=== PATIENT | female | born 1980 | race Caucasian/White ===

== ENCOUNTER → 2020-04-23 12:38 | Outpatient (CLI) | payer OTHER, SELFPAY ==
--- NOTE | ~2020-04-23 | MM_ITS ---
EXAMINATION: MM screening [facility] BI w peggy HISTORY: Screening mammogram TECHNIQUE: Craniocaudal and mediolateral oblique 3-D tomosynthesis images were obtained and synthetic 2-D images were generated. Bilateral rotated lateral craniocaudal views. CAD analysis was submitted and interpreted. COMPARISON: 01/12/2019 left diagnostic digital mammogram and complete left breast ultrasound examinat ion, left axillary ultrasound examination BREAST PARENCHYMAL COMPOSITION: The breasts are extremely dense, which lowers the sensitivity of mamm ography. FINDINGS: Scattered bilateral benign calcifications are noted. There is no evidence of suspicious mas s, calcification, or architectural distortion to suggest malignancy in either breast. There has been no suspicious interval change. IMPRESSION: 1. No mammographic evidence of malignancy. 2. Recommend routine screening mammography in one year. BI-RADS Category 2: Benign finding(s). Reviewed, dictated and finalized at location A. 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
== END ==
PROVIDERS: PCP Nurse Practitioner Family; Visit Provider Nurse Practitioner Family
DX: Z12.31 Encounter for screening mammogram for malignant neoplasm of breast (principal)
CPT/HCPCS: 77063; 77067

== ENCOUNTER 2020-06-27 14:04 | Emergency (ER) | payer OTHER, SELFPAY ==
[2020-06-27 14:12] VITALS: BP 103/72; PULSE 87; RESP 16; TEMP 36.7; O2SAT 98
--- NOTE | 2020-06-27 14:31 | ED.EAR ---
HPI - Ear Problem General Chief complaint: Ear Stated complaint: ear pain Time Seen by Provider: 06/27/20 14:31 Source: patient Mode of arrival: ambulatory Limitations: no limitations History of Present Illness HPI Narrative: Alyson Stringer is a 40 yo female with no PMH [facility] of left ear pain she has had ear pain for about the last week but has a history of having earaches as a child and getting congestion on the left side of her ear Related Data Allergies Allergy/AdvReac Type Severity Reaction Status Date / Time codeine Allergy Mild Unknown Verified 06/27/20 14:12 amoxicillin AdvReac Intermediate Unknown Verified 06/27/20 14:12 Review of Systems Review of Systems: Narrative: CONSTITUTIONAL: Denies fever, chills, sweats. EYES: Denies visual changes, redness, discharge. ENT: Denies rhinorrhea, congestion, sore throat, left otalgia. CARDIOVASCULAR: Denies chest pain, palpitations, edema. RESPIRATORY: Denies dyspnea, wheezing, cough GASTROINTESTINAL: Denies abdominal pain, nausea, vomiting, diarrhea. GENITOURINARY: Denies dysuria, hematuria, abnormal discharge SKIN: Denies rash or itching. NEUROLOGIC: Denies numbness, or focal weakness. PSYCHIATRIC: Denies anxiety or depression. PMFSH Past Medical History Medical History (Updated 06/27/20 @ 14:45 by Latoya Beal CNP) No acute medical problems Family History Family History Mother Diabetes mellitus Hypertension Father Hypertension Family history of cardiovascular disease Cerebrovascular accident Social History Social History (Updated 06/27/20 @ 14:40 by Latoya Beal CNP) Smoking status: Never smoker Alcohol intake: current Comments At time of signature, I agree with nursing past medical, surgical, social and family history. There is no relevant family history pertinent to the presenting complaint. Exam Narrative: Exam Narrative: GENERAL: This is a well-nourished, well-developed patient, in mild distress. HEAD: normocephalic, atraumatic. EYES: Sclera clear/white. Vision is grossly intact. EARS: External ears normal, auditory canals mild erythema and without drainage, TMs normal without perforation. Hearing grossly intact. Left ear tenderness anterior to auricle NOSE: External nose normal with nasal discharge, nares without redness, no rhinorrhea. THROAT: Mucous membranes moist, posterior pharynx no erythema NECK: Neck supple, non-tender CARDIOVASCULAR: Regular rate and rhythm without murmurs, gallops, or rubs. RESPIRATORY: Clear to auscultation. Breath sounds equal bilaterally. No wheezes, rales, or rhonchi. GASTROINTESTINAL: Abdomen soft, non-tender, SKIN: warm, intact with no suspicious lesions or rash, good texture and turgor. NEURO: awake, alert, and oriented to person, place and time. There were no obvious focal neurologic abnormalities. Steady gait EXTREMITIES: Normal range of motion. BACK: Nontender without deformity Course Course Emergency Course: Pain in left ear that started a week ago has a history of difficulty with congestion in the left ear Start patient on polymyxin eardrops with hydrocortisone, Flonase, Zyrtec May use ibuprofen for jaw pain follow-up with PCP Vital Signs Vital signs: Vital Signs Temperature 98.1 F 06/27/20 14:12 Pulse Rate 87 06/27/20 14:12 Respiratory Rate 16 06/27/20 14:12 Blood Pressure 103/72 06/27/20 14:12 Pulse Oximetry 98 06/27/20 14:12 Temperature 98.1 F 06/27/20 14:12 Pulse Rate 87 06/27/20 14:12 Respiratory Rate 16 06/27/20 14:12 Blood Pressure 103/72 06/27/20 14:12 Pulse Oximetry 98 06/27/20 14:12 Medical Decision Making MDM Narrative Medical decision making narrative: Otitis media versus otitis externa versus sinus congestion Vital Signs Vital Signs: Vital Signs Temperature 98.1 F 06/27/20 14:12 Pulse Rate 87 06/27/20 14:12 Respiratory Rate 16
== END 2020-06-27 14:50 | disposition home or self-care (01) ==
PROVIDERS: Emergency Provider Nurse Practitioner; PCP Nurse Practitioner Family
DX: H92.02 Otalgia, left ear (principal); F41.9 Anxiety disorder, unspecified
CPT/HCPCS: 99213; G0463

== ENCOUNTER 2021-02-25 09:56 | Outpatient (CLI) | payer OTHER, SELFPAY ==
--- NOTE | 2021-02-25 14:22 | WPDPFTINT ---
PFT Procedure Performed PFT Procedure Performed Spirometry with Pre/Post Bronchodilator Plethysmography (Lung Vol) Diffusing Cap (DLCO) Flow Vol Loop PFT Interpretation This is a pulmonary function test with pre and post-bronchodilator spirometry, plethysmography and diffusing capacity. The test was performed and results interpreted in accordance with the 2019 and 2005 ATS/ERS Task Force guidelines respectively using the Global Lung Function Initiative-2012 reference equations. Patient demonstrated good effort and cooperation. Reproducibility criteria were met. The quality of the pre bronchodilator spirometry maneuver was Grade A and post bronchodilator spirometry maneuver was Grade A. Findings: Spirometry: The expiratory flow tracing demonstrates the mid expiratory plateau in airflow creating a mild convex inflection referred to as the knee pattern the contour the inspiratory flow tracing is normal. This was reproducible on 2 of 3 pre bronchodilator and all 3 post bronchodilator efforts. the pre bronchodilator FVC is 4.22 L, 106 % predicted. The pre bronchodilator FEV1 is 3.24 L, 100% predicted. The FEV1: FVC ratio 77%. The post bronchodilator FVC is 4.25 L, representing 1% increase. The post bronchodilator FEV1 is 3.25 L, representing no change. The post bronchodilator FEV1: FVC ratio 76%. Plethysmography: The total lung cuff capacity is 5.67 L, 105% predicted. The functional residual capacity is 2.66 L, 89% predicted. The residual volume is 1.44 L, 85% predicted. Diffusing capacity: The absolute diffusion capacity is 24.4, 99% predicted. The diffusing capacity corrected for alveolar volume is 4.51, 97% predicted. Impression: The expiratory flow tracing demonstrates a reproducible mid explored expiratory plateau in airflow creating a convex inflection referred to as the knee pattern in 2 of 3 pre bronchodilator and 3 of 3 post bronchodilator efforts. This pattern can be a normal variant or pathologic and has been attributed to a choke point section of the bronchial tree. The normal variant is more common in younger female patients, decreases with age and is more pronounced in the post bronchodilator efforts. The pattern has also been described with kyphosis, kyphoscoliosis, central obstructing mass is, and post lung transplantation. Clinical correlation is recommended. The spirometry is normal without evidence of an obstructive abnormality. There is no significant improvement after inhaling a single dose of albuterol. The lung volumes are normal. The diffusing capacity is normal. There are no prior studies for comparison
== END 2021-02-25 09:57 | disposition home or self-care (01) ==
LOC: ANHPFT 09:58
PROVIDERS: PCP Family Medicine; Visit Provider Nurse Practitioner Family
DX: R06.02 Shortness of breath (principal); R06.00 Dyspnea, unspecified
CPT/HCPCS: 94060; 94726; 94729

== ENCOUNTER 2021-03-26 11:44 | Outpatient (CLI) | payer OTHER, SELFPAY ==
[2021-03-26 12:13] LABS: Basophils Absolute Auto 0.1 K/mm3 (0.0-0.1); Basophils Percent Auto 1.2 % (0.2-1.2); Eosinophils Absolute Auto 0.2 K/mm3 (0-0.3); Eosinophils Percent Auto 3.6 % (0-4.4); Hematocrit 40.8 % (37.0-47.0); Hemoglobin 13.6 g/dL (12.0-15.0); Immature Granulocyte Absolute 0.01 K/mm3 (0.00-0.031); Immature Granulocyte Percent A 0.2 % (0-0.5); Lymphocytes Absolute Auto 1.56 K/mm3 (0.9-3.2); Lymphocytes Percent Auto 27.8 % (18.3-44.2); Mean Corpuscular HGB Conc 33.3 g/dl (32-36); Mean Corpuscular Hemoglobin 31.7 pg (26-34); Mean Corpuscular Volume 95.1 fl (80-100); Mean Platelet Volume 10.2 fl (7.4-10.4); Monocytes Absolute Auto 0.5 K/mm3 (0.1-0.6); Monocytes Percent Auto 9.1 % (2.6-8.5); Neutrophils Absolute Auto 3.3 K/mm3 (1.3-6.7); Neutrophils Percent Auto 58.1 % (45.5-73.1); Platelet Count Result 249 k/mm3 (150-375); Red Blood Count 4.29 M/mm3 (4.2-5.4); Red Cell Distribution Width 11.9 % (11.5-14.5); White Blood Count 5.6 K/mm3 (4.5-10.0)
== END 2021-03-26 11:45 | disposition home or self-care (01) ==
LOC: ANHLAB 11:46
PROVIDERS: PCP Nurse Practitioner Family; Visit Provider Internal Medicine Pulmonary Disease
DX: R06.02 Shortness of breath (principal)
CPT/HCPCS: 36415; 85025

== ENCOUNTER 2021-04-29 12:08 | Outpatient (CLI) | payer OTHER, SELFPAY ==
--- NOTE | ~2021-04-29 | XR_ITS ---
EXAMINATION: XR chest 2V EXAM DATE: 04/29/2021 12:31 INDICATION: R06.02 - Shortness of breath TECHNIQUE: Frontal and lateral projections of the chest obtained and reviewed. There is no prior ciarra dy for comparison. FINDINGS: The lungs are clear. There are no pleural effusions. The cardiomediastinal silhouette is within normal limits. There is no pneumothorax suspected. The bones and soft tissues are unremarkab le. IMPRESSION: Normal chest x-ray exam. Reviewed, dictated and finalized at location A. ANY DRIVER IMPRESSION: Normal chest x-ray exam.
--- NOTE | 2021-04-29 12:36 | ECHO_ITS ---
Patient Info Name: Alyson Stringer Age: 41 years : 1980 Gender: Female Ht: 66 in Wt: 143 lbs BSA: 1.74 m2 HR: 86 bpm BP: 108 / 75 mmHg Heart Rhythm: Sinus Rhythm Technical Quality: Fair Exam Date: 04/29/2021 12:44 PM Exam Location: [facility] Pulmonary Patient Status: Outpatient Admit Date: 04/29/2021 Staff Ordering Physician: Isai Hammond MD Cellophane Bag Machine Operator: Mariaa Diego RDCS Attending Provider: Isai Hammond MD Referring Physician: Manish SANCHEZ; Exam Type: CA echo doppler color flow Study Info Indications - shortness of breath Complete two-dimensional, color flow and Doppler transthoracic echocardiogram is performed. Summary 1. Complete two-dimensional, color flow and Doppler transthoracic echocardiogram is performed. 2. Left ventricular chamber dimension is normal. 3. Left ventricular systolic function is normal, estimated at 65-70%. 4. There is mildly increased left ventricular wall thickness. 5. The left ventricular diastolic function is normal. 6. There is trace mitral valve regurgitation. 7. There is no aortic valve stenosis. 8. There is trace tricuspid valve regurgitation. 9. No pulmonary hypertension, estimated pulmonary arterial systolic pressure is 19 mmHg. Left Ventricle Left ventricular chamber dimension is normal. Left ventricular systolic function is normal, estimated at 65-70%. There is mildly increased left ventricular wall thickness. The left ventricular diastolic function is normal. Right Ventricle Right ventricular chamber dimension is normal. Right ventricular systolic function is normal. Left Atria Left atrial chamber dimension is normal. Right Atria Right atrial chamber dimension is normal. Aortic Valve The aortic valve is trileaflet. There is no aortic valve stenosis. There is no aortic valve regurgitation. Pulmonic Valve The pulmonic valve is not well visualized. There is trace pulmonic regurgitation. Mitral Valve The mitral valve has normal leaflets. There is trace mitral valve regurgitation. Tricuspid Valve The tricuspid valve leaflets are normal. There is trace tricuspid valve regurgitation. No pulmonary hypertension, estimated pulmonary arterial systolic pressure is 19 mmHg. Pericardium/Pleural The pericardium appears normal. There is trivial pericardial effusion. Inferior Vena Cava Normal inferior vena cava with >50% collapse upon inspiration consistent with normal right atrial pressure, 5 mmHg. Aorta The aortic root size at the sinus of Valsalva is normal. Left Ventricular Outflow Tract Name Value Normal LVOT 2D LVOT Diameter 2.0 cm LVOT Doppler LVOT Peak Gradient 3 mmHg LVOT Mean Gradient 1 mmHg LVOT VTI 16 cm LVOT VTI/AV VTI Ratio 0.7 LVOT Stroke Volume 48 ml LVOT CO 3.9 l/min LVOT CI 2.2 l/min/m2 Pulmonic Valve
== END 2021-04-29 12:09 | disposition home or self-care (01) ==
LOC: ANHIMG 12:18
PROVIDERS: PCP Nurse Practitioner Family; Visit Provider Internal Medicine Pulmonary Disease
DX: R06.02 Shortness of breath (principal)
CPT/HCPCS: 71046; 93306

== ENCOUNTER → 2021-08-19 12:10 | Outpatient (CLI) | payer OTHER, SELFPAY ==
--- NOTE | ~2021-08-19 | MM_ITS ---
EXAMINATION: MM screening [facility] BI w peggy HISTORY: Screening mammogram TECHNIQUE: Craniocaudal and mediolateral oblique 3-D tomosynthesis images were obtained and synthetic 2-D images were generated. CAD analysis was submitted and interpreted. COMPARISON: 04/23/2020, 01/12/2019 BREAST PARENCHYMAL COMPOSITION: The breasts are extremely dense, which lowers the sensitivity of mamm ography. FINDINGS: There is no suspicious mass, calcification, or architectural distortion to suggest malignan cy in either breast. There has been no suspicious interval change. IMPRESSION: 1. No mammographic evidence of malignancy. 2. Recommend routine screening mammography in one year. BI-RADS Category 1: Negative Reviewed, dictated and finalized at location A.
== END ==
PROVIDERS: PCP Family Medicine; Visit Provider Nurse Practitioner Family
DX: Z12.31 Encounter for screening mammogram for malignant neoplasm of breast (principal)
CPT/HCPCS: 77063; 77067

== ENCOUNTER → 2021-11-19 10:19 | Outpatient (CLI) | payer OTHER, SELFPAY ==
--- NOTE | ~2021-11-19 | US_ITS ---
EXAMINATION: US abdomen complete DATE: 11/19/2021 10:46 INDICATION: Abdominal pain TECHNIQUE: Multiple grayscale and Doppler ultrasound images of the abdomen were obtained. COMPARISON: None available FINDINGS: Bowel gas obscures visualization of the pancreas. The visualized portions of the pancreas a re unremarkable. The liver is normal with normal echogenicity and echotexture. No surface nodularity. Normal hepatopetal flow in the main portal vein. The gallbladder is normal with no abnormal wall thi ckening, pericholecystic fluid or stones. The normal common bile duct measures 5 mm. There was no son ographic Bates sign. The visualized portions of the aorta and inferior vena cava are normal. The right kidney measures 9.7 x 4.2 x 4.9 cm. The left kidney measures 9.3 x 4.9 x 5.2 cm. The kidney s demonstrate normal parenchymal echogenicity. There is no hydronephrosis. The spleen is normal in ap pearance and measures 8.0 cm. IMPRESSION: 1. No sonographic correlate for the patient's symptoms. Reviewed, dictated and finalized at location A.
== END ==
PROVIDERS: PCP Nurse Practitioner Family; Visit Provider Nurse Practitioner Family
DX: R10.9 Unspecified abdominal pain (principal)
CPT/HCPCS: 76700

== ENCOUNTER → 2021-11-25 09:17 | Outpatient (CLI) | payer OTHER, SELFPAY ==
--- NOTE | ~2021-11-25 | MMUS_ITS ---
EXAMINATION: MM diagnostic [facility] LT w peggy, US breast LT limited HISTORY: Palpable left breast abnormality. TECHNIQUE: Additional 3-D tomosynthesis images of the left breast were performed and synthetic 2-D im ages were generated. CAD analysis was submitted and interpreted. High resolution Limited left breast ultrasound was performed. COMPARISON: Comparison to multiple prior studies sequentially, with oldest reviewed study dated 01/03. BREAST PARENCHYMAL COMPOSITION: The breasts are extremely dense, which lowers the sensitivity of mamm ography FINDINGS: MAMMOGRAPHIC FINDINGS: There are no suspicious masses, calcifications or architectural distortion in the left breast to sugg est malignancy. ULTRASOUND: Limited left breast ultrasound: At 11:00, 6 cm from the nipple in the area of palpable concern there is a 1 cm cyst. No suspicious masses to suggest malignancy. IMPRESSION: 1. No evidence for malignancy in the left breast. 2. Routine yearly screening mammogram and regular clinical breast examination are recommended. BI-RADS Category 2: Benign finding(s). Reviewed, dictated and finalized at location A. IMPRESSION: 1. No evidence for malignancy in the left breast. 2. Routine yearly screening mammogram and regular clinical breast examination a re recommended. BI-RADS Category 2: Benign finding(s).
== END ==
PROVIDERS: PCP Nurse Practitioner Family; Visit Provider Obstetrics & Gynecology
DX: N63.20 Unspecified lump in the left breast, unspecified quadrant (principal)
CPT/HCPCS: 76642; 77061; 77065; G0279

== ENCOUNTER 2022-01-13 00:11 | Day surgery (SDC) | payer OTHER, SELFPAY ==
[2021-12-25 14:05] VITALS: BMI 24.5
[2022-01-13 08:39] VITALS: BP 104/65; PULSE 86; RESP 16; TEMP 36.3; O2SAT 100
[2022-01-13] MEDS: LACTATED RINGERS 1,000 ML 150 ML IV CONT (08:48)
--- NOTE | 2022-01-13 08:55 | WPDANESEPPF ---
Anes - Initial Pre Proc Eval Procedure: Operation Date: 01/13/22 09:45 Proposed Procedures p Esophagogastroduodenoscopy - Sebas Bardales MD Date/Time: 01/13/22 08:55 Surgeon: Sebas Bardales MD Pre Op Diagnosis: abdominal bloating, early satiety Patient Data Age: 41 Gender: F Height: 1.68 m Weight: 67.8 kg Last Vital Signs Temp 97.3 F L 01/13/22 08:39 Pulse 86 01/13/22 08:39 Resp 16 01/13/22 08:39 BP 104/65 01/13/22 08:39 Pulse Ox 100 01/13/22 08:39 O2 Del Method Room Air 01/13/22 08:39 Allergies Allergy/AdvReac Type Severity Reaction Status Date / Time codeine Allergy Mild Unknown Verified 01/13/22 08:37 amoxicillin AdvReac Intermediate Unknown Verified 01/13/22 08:37 Home Medications Medication Instructions Recorded Confirmed Type albuterol sulfate 90 mcg/actuation 1 inh inhalation Q4H PRN shortness 05/23/21 12/25/21 Rx aerosol inhaler (ProAir HFA) of breath or wheezing #6.7 grams [id number] 18 mg-FA 400 1 tablet PO DAILY 11/06/21 01/13/22 History mcg-calcium 500 mg-vit K 50 mcg tablet (Women's Multivitamin) alprazolam 0.25 mg tablet (Xanax) 0.25 mg PO QHS PRN anxiety #30 tabs 01/12/22 01/13/22 Rx Patient hx anesthesia problems: none Family hx anesthesia problems: none Results Review: All pre-operative results and documents have been reviewed as part of the pre-operative evaluation. [facility] Past Medical History Medical History (Updated 11/25/21 @ 13:33 by Mary Danielle APRN) BMI 24.0-24.9, adult Early satiety Endometriosis of cervix No acute medical problems Postprandial abdominal bloating Family History Family History Mother Diabetes mellitus Hypertension Depression Tobacco abuse Father Hypertension Family history of cardiovascular disease Cerebrovascular accident Alcohol abuse Depression Heart disease Tobacco abuse Grandparent Diabetes mellitus Hypertension Depression Heart disease Grandparent Hypertension Heart disease Cerebrovascular accident Sibling Hyperlipidemia Social History Social History Smoking status: Never smoker Second hand tobacco smoke exposure: Yes Alcohol intake: current Alcohol use details: 1 per month Substance use: never Substance use type: does not use Living arrangements: with roommate(s) 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 Informed Consent: The patient's anesthetic plan and its attendant risks and benefits were discussed with the patient/family/POA. Questions were solicited and answers provided to the satisfaction of the patient/family/POA.
--- NOTE | 2022-01-13 09:31 | PM.HPGS ---
History of Present Illness History of Present Illness Consent: Risks, benefits, and alternatives have been discussed and questions answered. Patient agrees to proceed with procedure. Chief complaint: abdominal bloating, early satiety Narrative: Alyson Stringer is a 41 year old female with bloating, also mild gerd, never had egd. Also history of endometriosis. Review of Systems Constitutional: Constitutional: Denies headache(s) and Denies weakness Eyes: Eyes: Denies blurry vision ENT: Reports Normal hearing present, Denies headache(s) and Denies neck pain Cardiovascular: Cardiovascular: Denies chest pain and Denies dyspnea Respiratory: Respiratory: Denies dyspnea Gastrointestinal: Gastrointestinal: Reports no additional gastrointestinal complaints Genitourinary: Genitourinary: Denies dysuria Musculoskeletal: Musculoskeletal: Denies neck pain Integumentary/Breasts: Skin/Breast: Denies dry skin Neurologic: Reports Normal hearing present, Denies headache(s) and Denies weakness Psychiatric: Psychiatric: Denies anxiety Endocrine: Endocrine: Denies change in body appearance Hematologic/Lymphatic: Hematologic/Lymphatic: Denies easy bleeding Allergic/Immunologic: Allergic/Immunologic: Denies urticaria PMFSH Past Medical History Medical History (Updated 11/25/21 @ 13:33 by Mary Danielle, TESSA) BMI 24.0-24.9, adult Early satiety Endometriosis of cervix No acute medical problems Postprandial abdominal bloating Family History Family History Mother Diabetes mellitus Hypertension Depression Tobacco abuse Father Hypertension Family history of cardiovascular disease Cerebrovascular accident Alcohol abuse Depression Heart disease Tobacco abuse Grandparent Diabetes mellitus Hypertension Depression Heart disease Grandparent Hypertension Heart disease Cerebrovascular accident Sibling Hyperlipidemia Social History Social History Smoking status: Never smoker Second hand tobacco smoke exposure: Yes Alcohol intake: current Alcohol use details: 1 per month Substance use: never Substance use type: does not use Living arrangements: with roommate(s) 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[employer] Gender identity (if verbalized by the patient): Female Spiritual care concerns: No Meds Home Medications and Allergies Home Medications Medication Instructions Recorded Confirmed Type albuterol sulfate 90 mcg/actuation 1 inh inhalation Q4H PRN shortness 05/23/21 12/25/21 Rx aerosol inhaler (ProAir HFA) of breath or wheezing #6.7 grams [id number] 18 mg-FA 400 1 tablet PO DAILY 11/06/21 01/13/22 History mcg-calcium 500 mg-vit K 50 mcg tablet (Women's Multivitamin) alprazolam 0.25 mg tablet (Xanax) 0.25 mg PO QHS PRN anxiety #30 tabs 01/12/22 01/13/22 Rx Allergies Allergy/AdvReac Type Severity Reaction Status Date / Time codeine Allergy Mild Unknown Verified 01/13/22 08:37 amoxicillin AdvReac Intermediate Unknown Verified 01/13/22 08:37 Vital Signs Vital Signs - 24 hr 01/13/22 08:39 Temperature 97.3 F L Pulse Rate 86 Respiratory Rate 16 Blood Pressure 104/65 Pulse Oximetry 100 Oxygen Delivery Room Air Exam Const: General: comfortable and no acute distress HENMT: Face/Nose/Sinus: Normal nares present Eyes: General: appearance normal, both eyes and all related structures Neck: Neck: no JVD Resp: Auscultation: clear to auscultation bilaterally Cardio: Rate: regular rate Rhythm: regular rhythm GI: Inspection: non-distended GI Palp: Yes Soft to palpation Skin: General skin exam: normal color Neuro: General: gait normal Speech: normal speech Extrem: General: normal to inspection Psych: Mental Status: mental status grossly normal Assessment and Plan Assessment and plan (1) Post
[2022-01-13 09:39] VITALS: BP 89/54; PULSE 72; RESP 17; O2SAT 97
[2022-01-13 09:49] VITALS: BP 92/57; PULSE 76; RESP 15; O2SAT 97
[2022-01-13 09:59] VITALS: BP 105/69; PULSE 69; RESP 19; O2SAT 100
== END 2022-01-13 10:13 | disposition home or self-care (01) ==
PROVIDERS: PCP Nurse Practitioner Family; Visit Provider Internal Medicine Gastroenterology
PROC: 0DJ08ZZ Inspection of Upper Intestinal Tract, Via Natural or Artificial Opening Endoscopic (ICD-10-PCS; CPT 43235; principal; 2022-01-13 09:45)
DX: K21.9 Gastro-esophageal reflux disease without esophagitis (principal); R14.0 Abdominal distension (gaseous); K29.50 Unspecified chronic gastritis without bleeding; R68.81 Early satiety; N80.00 Endometriosis of the uterus, unspecified; Z79.51 Long term (current) use of inhaled steroids
CPT/HCPCS: 43239; 88305; J2704; J7120

== ENCOUNTER → 2022-12-08 07:22 | Outpatient (CLI) | payer OTHER, SELFPAY ==
--- NOTE | ~2022-12-08 | MM_ITS ---
EXAMINATION: MM screening [facility] BI w peggy HISTORY: Screening mammogram TECHNIQUE: Craniocaudal and mediolateral oblique 3-D tomosynthesis images were obtained and synthetic 2-D images were generated. CAD analysis was submitted and interpreted. COMPARISON: 11/25/2021 diagnostic left mammogram and limited left breast ultrasound examination 08/19/2021, 04/23/2020 bilateral screening mammogram examinations BREAST PARENCHYMAL COMPOSITION: The breasts are extremely dense, which lowers the sensitivity of mamm ography. FINDINGS: There is no evidence of suspicious mass, calcification, or architectural distortion to sugg est malignancy in either breast. There has been no suspicious interval change. IMPRESSION: 1. No mammographic evidence of malignancy. 2. Recommend routine screening mammography in one year. BI-RADS Category 1: Negative Reviewed, dictated and finalized at location A.
== END ==
PROVIDERS: PCP Nurse Practitioner Family; Visit Provider Nurse Practitioner Obstetrics & Gynecology
DX: Z12.31 Encounter for screening mammogram for malignant neoplasm of breast (principal)
CPT/HCPCS: 77063; 77067

== ENCOUNTER 2024-02-09 14:54 | Outpatient (CLI) | payer OTHER, SELFPAY ==
--- NOTE | ~2024-02-09 | MM_ITS ---
EXAMINATION: MM screening [facility] BI w peggy HISTORY: Screening TECHNIQUE: Craniocaudal and mediolateral oblique 3-D tomosynthesis images were obtained and synthetic 2-D images were generated. CAD analysis was submitted and interpreted. COMPARISON: Comparison to multiple prior studies sequentially, with oldest reviewed study dated 04/23. BREAST PARENCHYMAL COMPOSITION: Dense: The breasts are extremely dense, which lowers the sensitivity of mammography. FINDINGS: There is no evidence of suspicious mass, calcification, or architectural distortion to sugg est malignancy in either breast. There has been no suspicious interval change. IMPRESSION: 1. No mammographic evidence of malignancy. 2. Recommend routine screening mammography in one year. BI-RADS Category 1: Negative Reviewed, dictated and finalized at location B. [employer]
== END 2024-02-09 14:55 | disposition home or self-care (01) ==
LOC: MICIMG 14:55
PROVIDERS: PCP Family Medicine; Visit Provider Family Medicine
DX: Z12.31 Encounter for screening mammogram for malignant neoplasm of breast (principal)
CPT/HCPCS: 77063; 77067

== ENCOUNTER 2025-02-13 10:23 | Outpatient (CLI) | payer OTHER, SELFPAY ==
--- NOTE | ~2025-02-13 | MM_ITS ---
EXAMINATION: MM screening [facility] BI w peggy HISTORY: Screening TECHNIQUE: Craniocaudal and mediolateral oblique 3-D tomosynthesis images were obtained and synthetic 2-D images were generated. CAD analysis was submitted and interpreted. COMPARISON: Comparison to multiple prior studies sequentially, with oldest reviewed study dated 04/23/2020. BREAST PARENCHYMAL COMPOSITION: Dense: The breasts are extremely dense, which lowers the sensitivity of mammography. FINDINGS: There is no evidence of suspicious mass, calcification, or architectural distortion to suggest malignancy in either breast. There has been no suspicious interval change. IMPRESSION: 1. No mammographic evidence of malignancy. 2. Recommend routine screening mammography in one year. BI-RADS Category 1: Negative Reviewed, dictated and finalized at location B. 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
== END 2025-02-13 10:24 | disposition home or self-care (01) ==
LOC: MICIMG 10:23
PROVIDERS: PCP Family Medicine; Visit Provider Family Medicine
DX: Z12.31 Encounter for screening mammogram for malignant neoplasm of breast (principal)
CPT/HCPCS: 77063; 77067